=== PATIENT | male | born 1970 | race Caucasian/White ===

== ENCOUNTER 2017-10-31 20:01 | Emergency (ER) | payer BC ==
[~2017-10-31] VITALS: Ht 182.9 cm; Wt 124.7 kg
[2017-10-31 20:04] VITALS: BP 145/101
[2017-10-31] MEDS ORDERED: IBUPROFEN 400 MG TABLET ONE (20:24)
--- NOTE | 2017-10-31 20:27 | NUR ---
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
[2017-10-31] MEDS ORDERED: IBUPROFEN 400 MG TABLET PO ONE (20:30)
== END 2017-10-31 22:53 | disposition home or self-care (01) ==
LOC: ER 20:05
DX: S52.122A Displaced fracture of head of left radius, initial encounter for closed fracture (principal); F10.10 Alcohol abuse, uncomplicated; W01.0XXA Fall on same level from slipping, tripping and stumbling without subsequent striking against object, initial encounter; Y93.89 Activity, other specified; Y92.830 Public park as the place of occurrence of the external cause; Y99.8 Other external cause status
CPT/HCPCS: 29105; 73080; 73090; 99284; A4606; Z7610